=== PATIENT | female | born 1960 | race Caucasian/White ===

== ENCOUNTER 2022-05-31 13:53 | Outpatient (CLI) | payer OTHER, SELFPAY | END 2022-05-31 13:54 | disposition home or self-care (01) | LOC: NFLDUCREF 06-02 10:36 | PROVIDERS: PCP Family Medicine; Visit Provider Registered Nurse | DX: N39.0 Urinary tract infection, site not specified (principal) | CPT/HCPCS: 87086; 87186 ==

== ENCOUNTER 2023-06-11 12:45 | Outpatient (CLI) | payer OTHER, SELFPAY | END 2023-06-11 12:46 | disposition home or self-care (01) | LOC: NFLDREF 06-16 20:19 | PROVIDERS: PCP Family Medicine; Referring Provider Family Medicine; Visit Provider Nurse Practitioner Family | DX: R82.998 Other abnormal findings in urine (principal) | CPT/HCPCS: 87086 ==